=== PATIENT | male | born 1990 ===

== ENCOUNTER 2016-10-30 02:51 | Observation (INO) | payer SELFPAY ==
[2016-10-30 02:57] VITALS: RESP 18; O2SAT 98
--- NOTE | 2016-10-30 03:29 | ED PDOC ---
HPI: Psych/Substance Abuse Time Seen by Provider: 10/30/16 03:04 Chief Complaint (Nursing): Alcohol Ingestion Chief Complaint (Provider): Alcohol Ingestion History Per: Patient, EMS History/Exam Limitations: no limitations Onset/Duration Of Symptoms: Hrs (3x hours. Patient was drinking last night) Current Symptoms Are (Timing): Still Present Modifying Factor(s): Alcohol Severity: Moderate Additional Complaint(s): 26 year old male with no pertinent medical history is brought into the ED by EMS for alcohol ingestion. Patient admits to drinking too much last night and was found publicly stumbling by EM just prior to arrival. He denies having any medical complaints. Past Medical History Reviewed: Historical Data, Nursing Documentation, Vital Signs Vital Signs: Last Vital Signs Temp 98.9 F 10/30/16 02:54 Pulse 94 H 10/30/16 02:54 Resp 18 10/30/16 02:54 BP 143/60 10/30/16 02:54 Pulse Ox 98 10/30/16 02:54 - Medical History PMH: No Chronic Diseases - Family History Family History: States: Unknown Family Hx - Home Medications Home Medications: Ambulatory Orders Medication Instructions Recorded No Known Home Med 10/30/16 - Allergies Allergies/Adverse Reactions: Allergies Allergy/AdvReac Type Severity Reaction Status Date / Time No Known Allergies Allergy Verified 10/30/16 03:04 Review of Systems ROS Statement: Except As Marked, All Systems Reviewed And Found Negative Physical Exam - Reviewed Nursing Documentation Reviewed: Yes Vital Signs Reviewed: Yes - Physical Exam Appears: Positive for: Non-toxic, No Acute Distress. Negative for: Well ( intoxicated and slurring speech) Head Exam: Positive for: ATRAUMATIC, NORMOCEPHALIC Skin: Positive for: Normal Color, Warm, Dry Eye Exam: Positive for: Normal appearance Cardiovascular/Chest: Positive for: Regular Rate, Rhythm Respiratory: Positive for: Normal Breath Sounds. Negative for: Respiratory Distress Neurologic/Psych: Positive for: Alert, Oriented (3x) - ECG O2 Sat by Pulse Oximetry: 98 (RA) Pulse Ox Interpretation: Normal Medical Decision Making Medical Decision Makin:04 Initial impression: 26 year old male intoxicated Initial plan: * alcohol serum * accucheck * reevaluation 3:11 Patient is being placed into ED observation pending clinical sobriety. See ED obs note for further updates. 7:00 Patient is singed out by me to Parker Howell MD pending sobriety, reevaluation, and final disposition. Scribe Attestation: Documented by Maile Ross, acting as a scribe for Paul Thomas MD. Provider Scribe Attestation: All medical record entries made by the Scribe were at my direction and personally dictated by me. I have reviewed the chart and agree that the record accurately reflects my personal performance of the history, physical exam, medical decision making, and the department course for this patient. I have also personally directed, reviewed, and agree with the discharge instructions and disposition. ED OBSERVATION Date of observation admission: 10/30/16 Time of observation admission: 03:11 - Observation admission statement Patient is being placed in observation because:: Need for resolution of acute symptoms - Goals of Observation Goals of observation are:: Clinical sobriety. Disposition - Clinical Impression Clinical Impression: Alcohol abuse - Patient ED Disposition Is Patient to be Admitted: Transfer of Care - Disposition Disposition: Transfer of Care Disposition Time: 07:00 Condition: STABLE Patient Signed Over To: Parker Howell Handoff Comments: pending sobriety
[2016-10-30] MEDS ORDERED: Sodium Chloride 0.9% 1,000 ML IV STA (06:05)
[2016-10-30 08:03] VITALS: BP 100/51; PULSE 84; TEMP 98.2
--- NOTE | 2016-10-30 08:14 | ED PDOC ---
- ECG O2 Sat by Pulse Oximetry: 98 Medical Decision Making Medical Decision Makin;00 patient signed out to me by Dr. Thomas. Pending sobriety 8;12 Patient walking around. Shows no signs of clinical intoxication or possible self harm. Upon provider reevaluation patient is feeling better, is medically stable, and requires no further treatment in the ED at this time. Counseling was provided and all questions were answered regarding diagnosis. There is agreement to discharge plan. Return if symptoms persist or worsen. Disposition Counseled Patient/Family Regarding: Studies Performed, Diagnosis - Clinical Impression Clinical Impression: Alcohol abuse - POA Present On Arrival: None - Disposition Disposition: Routine/Home Disposition Time: 08:12 Condition: STABLE
== END 2016-10-30 08:53 | disposition home or self-care (01) ==
LOC: H.ER 02:51 → H.EROBSV 03:09
PROVIDERS: ADMIT Emergency Medicine; ATTEND Emergency Medicine
DX: F10.129 Alcohol abuse with intoxication, unspecified (principal); Y90.8 Blood alcohol level of 240 mg/100 ml or more
CPT/HCPCS: 96360; 96361; 96372; 99284; G0378; G0480; J2405; J2765; J7040